=== PATIENT | male | born 1980 | race Hispanic/Latino ===

== ENCOUNTER 2016-11-18 10:46 | Emergency (ER) | payer OTHER ==
[~2016-11-18] VITALS: Ht 157.5 cm; Wt 109.3 kg
[2016-11-18] MEDS ORDERED: ZITHROMAX500 M2 PO (11:34)
[2016-11-18] MEDS ORDERED: TESSALON PERLE100 M1 PO (11:34)
[2016-11-18] MEDS ORDERED: CHERATUSSIN AC118 M1 PO (11:34)
[2016-11-18] MEDS ORDERED: VENTOLIN HFA18 GM INH (11:34)
[2016-11-18] MEDS ORDERED: MEDROL4 M2 PO (11:34)
--- NOTE | 2016-11-18 11:36 | ED INFLUENZA/URI COMPLAINT ---
History of Present Illness General Chief Complaint: Upper Respiratory Sx/Fever Stated Complaint: FLU S/S FEVER,CHILLS,COUGH,CONGESTION Source: patient Exam Limitations: no limitations Vital Signs & Intake/Output Vital Signs & Intake/Output Vital Signs Date Time Temp Pulse Resp B/P Pulse O2 O2 Flow FiO2 Ox Delivery Rate 11/18 1054 99.3 107 20 128/79 97 Room Air Allergies Coded Allergies: No Known Allergies (01/10/16) Reconcile Medications Albuterol Sulfate (Ventolin Hfa) 90 MCG HFA.AER.AD 2 PUF INH Q4-6 PRN PRN SHORTNESS OF BREATH Azithromycin (Zithromax) 500 MG TABLET 1 TAB PO DAILY BRONCHITIS Benzonatate (Tessalon Perle) 100 MG CAPSULE 1 CAP PO TID PRN COUGH Codeine Phosphate/Guaifenesi (Cheratussin AC Syrup) 10 MG-100 MG/5 ML LIQUID 10 ML PO QPM PRN COUGH 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 (Medrol) 4 MG TAB.DS.PK 1 DP PO AD INFLAMMATION 6 on day 1 then reduce by one tablet daily until gone Triage Note: PT C/O SORE THROAT THAT CHANGED INTO FLU LIKE SYMPTOMS. PT STATES PRODUCTIVE COUGH, FEVER AND CHILLS X 3 DAYS Triage Nurses Notes Reviewed? yes Onset: Gradual Duration: constant Timing: recent history Severity: moderate Severity Numbers: 5 HPI: Patient is a 36-year-old male who presents emergency with a four-day history of gradual onset of productive cough, pleuritic chest pain upon coughing, fevers and chills, and sore throat. Positive sick contacts at home. Patient does not smoke. Denies any headache neck pain neck stiffness chest pain nausea vomiting rash or congestion of nose. Past History Travel History Traveled to [place] past 21 day No Medical History Any Pertinent Medical History? see below for history Endocrine: PREDIABETIC Surgical History Surgical History: non-contributory Psychosocial History What is your primary language Sami Tobacco Use: Never used ETOH Use: occasional use Illicit Drug Use: denies illicit drug use Family History Hx Contributory? No Review of Systems Review of Systems Constitutional: Reports: see HPI, fever. EENTM: Reports: throat pain. Respiratory: Reports: see HPI, cough. Cardiovascular: Reports: no symptoms. GI: Reports: no symptoms. Genitourinary: Reports: no symptoms. Musculoskeletal: Reports: no symptoms. Skin: Reports: no symptoms. Neurological/Psychological: Reports: no symptoms. Hematologic/Endocrine: Reports: no symptoms. Immunologic/Allergic: Reports: no symptoms. All Other Systems: Reviewed and Negative Physical Exam Physical Exam General Appearance: no apparent distress, alert, comfortable Ears, Nose, Throat: normal ENT inspection Respiratory: chest non-tender, no respiratory distress, rhonchi Comments: Well-developed well-nourished person in no acute distress HEENT: Normal EENT exam, extraocular motion intact, no nystagmus. Pupils equally round and reactive to light and accommodation. Nose is atraumatic. External auditory canal and Tympanic membranes clear. Pharynx normal. No swelling or edema. Neck: Supple, no lymphadenopathy, normal range of motion without pain or tenderness Back: Nontender, no CVA tenderness. Cardiovascular: Regular rate and rhythms no murmurs rubs or gallops, normal JVP Respiratory: Chest nontender. No respiratory distress.breath sounds clear to auscultation bilaterally Extremity: No edema, no calf tenderness to palpation, normal and equal pulses. Neuro: Alert oriented x3, motor sensory normal, Skin: No appreciable rash on exposed skin, skin is warm and dry. Psych: Mood and affect is normal, memory and judgment is normal. Core Measures Severe Sepsis Present: No Septic Shock Present: No Progress Differential Diagnosis: influenza, meningitis, neutropenia, otitis, pneumonia, pharyngitis, sinusitis Plan of Care: Patient was afebrile nontoxic appearing and patient will be treated for concerns of acute bronchitis. Patient was strongly advised to establish a primary care doctor as one was afforded to HIM in registration Initial ED EKG: none Departure Departure Disposition: HOME OR SELF CARE Condition: Stable Clinical Impression Primary Impression: Bronchitis Referrals: UNKNOWN (PCP/Family) Additional Instructions: As discussed begin [id number] Tylenol for fevers. Begin prescription of Robitussin with codeine and Tessalon Perles for cough, Medrol Dosepak for inflammation, Ventolin for shortness of breath, azithromycin for the full course Prescriptions are waiting at [facility] pharmacy. If symptoms worsen return to emergency room. Please follow up and establish a primary care doctor for further evaluation treatment. Departure Forms: Customer Survey General Discharge Information Prescriptions: Current Visit Scripts Azithromycin (Zithromax) 1 TAB PO DAILY #5 TAB Benzonatate (Tessalon Perle) 1 CAP PO TID PRN COUGH #21 CAP Methylprednisolone. 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
[2016-11-18 11:52] VITALS: BP 116/82
== END 2016-11-18 11:54 ==
LOC: ERH 10:46
DX: J40 Bronchitis, not specified as acute or chronic (principal)